=== PATIENT | male | born 1960 | race American Indian/Alaskan Native ===

== ENCOUNTER 2021-07-10 19:08 | Emergency (ER) | payer OTHER ==
[2021-07-10] MEDS ORDERED: cloNIDine 0.1 MG TAB PO ONE (22:48)
--- NOTE | 2021-07-10 22:52 | Emergency Department Report ---
HPI - General Chief Complaint: High BP Time Seen by Provider: 07/10/21 22:30 - HPI HPI: 60-year-old male with no known past medical history presents from an urgent care due to elevated blood pressure with a nosebleed today which required nasal packing. The patient states that today he had a nosebleed which he could not stop at home with pressure and so he went to an urgent care clinic where he was given oxymetazoline spray and nasal packing was placed bilaterally. He was told that he needs to return tomorrow to have the nasal packing removed by the doctor that placed it. However, he was noted to have a blood pressure in the 200s systolic and so he was sent to the emergency department for further evaluation. The patient states he has been checking his blood pressure since around and has noticed that it has been elevated with the systolic blood pressure being in the 150s to the 200s depending on when measured. He does not take any medication but says he has been taking garlic and flaxseed oil for his blood pressure and cholesterol. He has seen different urgent care doctors but has not establish care with a primary care doctor. Other than the nosebleed today which is controlled with the nasal packing, he denies any other associated symptoms or complaints. He denies headache, vision change, focal weakness, sensory change, chest pain, shortness of breath, cough, abdominal pain, nausea/vomiting, dysuria, back pain, or any other complaints ED Past Medical Hx - Past Medical History Previous Medical History?: No - Surgical History Past Surgical History?: No - Medications Home Medications: Home Medications Medication Instructions Recorded Confirmed Last Taken Type labetaloL [Labetalol 100mg TAB] 100 mg PO BID #14 07/11/21 Unknown Rx ED Review of Systems ROS: Stated complaint: HBP Other details as noted in HPI Comment: All other systems reviewed and negative Constitutional: denies: chills, fever Eyes: denies: eye pain, vision change ENT: epistaxis. denies: ear pain, throat pain Respiratory: denies: cough, shortness of breath Cardiovascular: denies: chest pain, palpitations Gastrointestinal: denies: abdominal pain, nausea, vomiting Genitourinary: denies: dysuria, frequency Musculoskeletal: denies: back pain, arthralgia Skin: denies: rash, lesions Neurological: denies: headache, weakness, numbness, paresthesias, confusion Hematological/Lymphatic: denies: easy bleeding Physical Exam - Physical Exam Vital Signs: Vital Signs 07/10/21 19:46 Temperature 97.6 F Pulse Rate 67 Respiratory 14 Rate Blood Pressure 206/119 [Left] Blood Pressure 219/123 [Right] O2 Sat by Pulse 98 Oximetry Physical Exam: GENERAL: Well developed and well nourished. No acute distress HEAD: Normocephalic. No obvious signs of trauma. ENT: Moist mucous membranes. Bilateral nasal packing in place which obscures view of the nasal cavities. There is no postnasal drip or bleeding observed in the posterior pharynx. EYES: Extraocular movements are intact. Pupils are equal round and reactive to light bilaterally NECK: Supple. Full ROM is intact. Trachea is midline. LUNGS: Nonlabored breathing. Equal chest rise bilaterally. Clear to auscultation bilaterally. CARDIOVASCULAR: Regular rate and rhythm. No murmurs or rubs. VASCULAR: Cap refill < 2 seconds ABDOMEN: Abdomen is soft and nondistended. There is no significant tenderness, guarding or rebound. SKIN: Skin is warm and dry NEURO: Patient is awake, alert, and oriented. boiler room operator II-XII grossly intact. No focal deficits. Normal motor and sensory exam throughout. Normal speech. MUSCULOSKELETAL: No obvious deformities. No significant tenderness. Normal ROM throughout. BACK/SPINE: No midline tenderness or step-offs of the C/T/L spine. No costoverte bral angle tenderness. ED Course Vital Signs 07/10/21 19:46 Temperature 97.6 F Pulse Rate 67 Respiratory 14 Rate Blood Pressure 206/119 [Left] Blood Pressure 219/123 [Right] O2 Sat by Pulse 98 Oximetry ED Medical Decision Making - Lab Data Result diagrams: 07/10/21 22:40 07/10/21 22:40 - EKG Data -: EKG Interpreted by Hi - EKG Data 07/11/21 01:04 Sinus bradycardia. Left anterior fascicular block. Otherwise normal intervals. No ectopy. Inverted T waves noted in the inferior leads. No significant ST segment abnormalities. - Medical Decision Making 60-year-old male with no known past medical history presents from an urgent care clinic with elevated blood pressure after he experienced epistaxis which required bilateral nasal packing. The epistaxis is now controlled but the patient was noted to have a blood pressure of 219/123 on initial evaluation her e. He is afebrile with otherwise normal vital signs. He has no symptoms other than the nosebleed he experienced today. On physical examination he has a nonfocal neurologic exam and there are no other gross abnormalities. Nonetheless, when I measured his blood pressure at the time of my interview, it was 221/124 with a heart rate of 60. Given the degree of his blood pressure elevation which qualifies as hypertensive urgency, we will perform broad work-up with a full set of labs and an EKG. We will give clonidine 0.[address] the patient on site monitor and follow-up blood pressure. Labs have resulted and reveal no significant leukocytosis or anemia. Creatinine is within normal range and there are no significant electrolyte abnormalities. Troponin is negative. Repeat blood pressure after clonidine is 198 systolic. The patient remains asymptomatic. He states he would like to leave and follow-up with the urgent care doctor tomorrow for removing of his nasal packing. Given his elevated blood pressure we will prescribe labetalol 100 mg twice daily for 2 weeks with instructions to the patient to measure his blood pressure and heart rate prior to the medication and not take it if his heart rate is less than 60 or blood pressure less than 120. I stressed the urgent need for him to establish care with a primary care doctor who can manage his medications and get his blood pressure under control. He is following up tomorrow with the urgent care for removal of nasal packing and will have his blood pressure checked then. The patient expressed understanding agreement with this plan of care. Critical care attestation.: If time is entered above; I have spent that time in minutes in the direct care of this critically ill patient, excluding procedure time. ED Disposition Clinical Impression: Epistaxis, Hypertensive urgency Disposition: 01 HOME / SELF CARE / HOMELESS Is pt being admited?: No Instructions: Nosebleed, Adult, Hypertension, Adult Additional Instructions: Please follow-up with the doctor that placed her nasal packing tomorrow to have it removed and to have your blood pressure rechecked. I have prescribed labetalol 100 mg twice daily for 2 weeks. Prior to taking this medication please check your blood pressure and heart rate and do not take the medication if your heart rate is less than 60 or your systolic blood pressure is less than 130. You should establish care in the next 1 to 2 days with the primary care doctor to manage your medications. Return to the emergency department for any worsening symptoms or new health concerns. Prescriptions: labetaloL [Labetalol 100mg TAB] 100 mg PO BID #14 Referrals: [facility] [Provider Group] - 3-5 Days
[2021-07-10 23:23] LABS: Basophils # (Auto) 0.1 K/mm3 (0.0-0.1); Eosinophils # (Auto) 0.1 K/mm3 (0.0-0.4); Eosinophils % (Auto) 1.4 % (0.0-4.3); Hematocrit 46.7 % (35.5-45.6); Hemoglobin 15.1 gm/dl (11.8-15.2); Lymphocytes # (Auto) 2.2 K/mm3 (1.2-5.4); Lymphocytes % (Auto) 29.3 % (13.4-35.0); Mean Corpuscular HGB Conc 32 % (32-34); Mean Corpuscular Volume 91 fl (84-94); Monocytes # (Auto) 0.5 K/mm3 (0.0-0.8); Monocytes % (Auto) 7.2 % (0.0-7.3); Platelet Count 237 K/mm3 (140-440); Red Blood Count 5.16 M/mm3 (3.65-5.03); Red Cell Distribution Width 13.5 % (13.2-15.2)
[2021-07-10 23:37] LABS: BUN/Creatinine Ratio 16; Blood Urea Nitrogen 14 mg/dL (9-20); Calcium 9.9 mg/dL (8.4-10.2); Hemolysis Index 33
[2021-07-11 00:42] VITALS: BP 198/109
--- NOTE | 2021-07-14 09:16 | Electrocardiograph Report ---
[facility] Test Date: 2021-07-10 Test Time: 23:10:39 Pat Name: SHAWN DEAN Department: Room: Gender: M Records Management Analyst: BEREKET : 1960 Requested By: NIKA IVEY Order Number: [id number] Reading MD: Jarocho Umanzor Measurements Intervals [place] Rate: 52 P: 43 MN: 167 QRS: -60 QRSD: 110 T: -42 QT: 442 QTc: 410 Interpretive Statements Sinus bradycardia Left anterior fascicular block Probable left ventricular hypertrophy Nonspecific T abnormalities, inferior leads No previous ECG available for comparison Electronically Signed On 07-14-2021 9:16:09 EST by Jarocho Umanzor
== END 2021-07-11 01:26 | disposition home or self-care (01) ==
LOC: ED 19:08
DX: R04.0 Epistaxis (principal); I16.0 Hypertensive urgency
CPT/HCPCS: 36415; 80048; 84484; 85025; 93005; 99283